=== PATIENT | male | born 1940 | race Caucasian/White ===

== ENCOUNTER 2020-08-31 17:01 | Emergency (ER) | payer MEDICARE, OTHER, SELFPAY ==
[2020-08-31] VITALS (29 sets, daily range): BP systolic 113–174; BP diastolic 57–79; PULSE 32–49; RESP 17–29; TEMP 36.4; O2SAT 93–98; BMI 24.3
--- NOTE | 2020-08-31 17:11 | DI.RAD.S_ITS ---
PROCEDURE: XR CHEST 1V INDICATIONS: chest pain TECHNIQUE: One view of the chest was acquired. COMPARISON: None. FINDINGS: Surgical changes and devices: None. Lungs and pleura: Lungs are clear. No pleural effusions or pneumothorax. Mediastinum: Mediastinal contours appear normal. Heart size is normal. Bones and chest wall: No suspicious bony lesions. Overlying soft tissues appear unremarkable. IMPRESSION: No evidence acute pulmonary process. Dictated by: Bruce Parnell M.D. on 08/31/2020 at 16:57 Approved by: Bruce Parnell M.D. on 08/31/2020 at 16:57
--- NOTE | 2020-08-31 17:24 | ED.ARRPALP ---
HPI - Arrhythmia/Palpitations <Alis Houston MD - Last Filed: 09/03/20 17:46> General Chief Complaint: Arrhythmia/Palpitations Stated Complaint: LIGHTHEADEDNESS/HBP/LOW PULSE RATE Time Seen by Provider: 08/31/20 17:14 Source: patient Mode of arrival: Ambulatory Limitations: no limitations History of Present Illness HPI narrative: Otherwise healthy 79-year-old gentleman with the S3 of hypertension on 5 mg of lisinopril presents with 4 days of lightheadedness with exertion. He states that it takes walking up at least a slope or stairs over last couple days but today he noticed that he was more lightheaded with simply walking across the room. He does not report any chest pain, orthopnea, dyspnea, lower extremity edema, palpitations, headaches or acute neurologic symptoms. He has had no recent fevers, cough, chills, abdominal pain, vomiting or diarrhea. His primary care physician is at [facility] in [place]. Related Data Allergies Allergy/AdvReac Type Severity Reaction Status Date / Time No Known Drug Allergies Allergy Verified 08/31/20 17:20 Review of Systems <Alis Houston MD - Last Filed: 09/03/20 17:46> Review of Systems Narrative: Remainder of complete review of systems is otherwise unremarkable except for that included in the HPI. Patient History <Alis Houston MD - Last Filed: 09/03/20 17:46> Social History Smoking Status: Never smoker Smoking Status: Never smoker alcohol intake frequency: 0-2 drinks per day Substance Use Type: does not use Exam <Alis Houstno MD - Last Filed: 09/03/20 17:46> Narrative Exam Narrative: General: Healthy appearing, in no acute distress. Able to give a complete and coherent history. Well-nourished well-developed HEENT: Moist mucous membranes, normal sclera with reactive pupils, Neck: No JVD, supple Respiratory: Lungs are clear to auscultation, no wheezing no rales no rhonchi. Full and symmetrical air movement Cardiac: Slow but Regular rate and rhythm no murmurs no bruits Abdomen: Soft, nontender, good bowel tones, no flank pain Skin: Warm and dry, no rashes Neurologic: Grossly neurologically intact with no obvious asymmetries or abnormalities Extremities: No trauma, well perfused Psych: Cooperative, appropriate insight and affect Initial Vital Signs Initial Vital Signs: Vital Signs Pulse Rate 43 L 08/31/20 17:09 Respiratory Rate 23 08/31/20 17:09 <Denny Kovacs DO - Last Filed: 08/31/20 22:47> Initial Vital Signs Initial Vital Signs: Vital Signs Pulse Rate 43 L 08/31/20 17:09 Respiratory Rate 23 08/31/20 17:09 Course <Alis Houston MD - Last Filed: 09/03/20 17:46> Orders Ordered: ED Orders 08/31/20 17:11 XR chest 1V Stat EKG-12 Lead Stat 08/31/20 17:21 Complete Blood Count AUTO DIFF Stat Comprehensive Metabolic Panel Stat Lipase Stat Magnesium Stat NT-proBNP (BNP-Adult 18+) Stat Troponin & CK Cardiac Panel Stat 08/31/20 17:25 COVID19 -Nasal swab/Pre-Proc Stat Vital Signs Vital signs: Vital Signs - 8 hr 08/31/20 17:09 08/31/20 17:11 08/31/20 17:15 Temperature Pulse Rate 43 L 40 L 40 L Respiratory Rate 23 20 20 Blood Pressure 174/79 H Pulse Oximetry 97 97 08/31/20 17:16 08/31/20 17:30 08/31/20 17:45 Temperature 97.6 F Pulse Rate 41 L 39 L 38 L Respiratory Rate 22 20 21 Blood Pressure 174/79 H Pulse Oximetry 98 96 96 08/31/20 18:00 08/31/20 18:15 08/31/20 18:30 Temperature Pulse Rate 37 L 37 L 37 L Respiratory Rate 21 26 H 21 Blood Pressure Pulse Oximetry 95 95 95 08/31/20 18:45 08/31/20 19:00 08/31/20 19:15 Temperature Pulse Rate 36 L 37 L 40 L Respiratory Rate 23 22 28 H Blood Pressure Pulse Oximetry 95 97 97 08/31/20 19:30 08/31/20 19:45 08/31/20 20:00 Temperature Pulse Rate 40 L 36 L 38 L Respiratory Rate 27 H 24 19 Blood Pressure Pulse Oximetry 95 96 96 08/31/20 20:10 08/31/20 20:15 08/31/20 20:30 Temperature Pulse Rate 36 L 36 L 38 L Respiratory Rate 23 20 17 Blood Pressure 150/66 H 145/67 H Pulse Oximetry 96 96 96 08/31/20 20:31 08/31/20 20:45 08/31/20 21:00 Temperature Pulse Rate 49 L 42 L 36 L Respiratory Rate 24 29 H 29 H Blood Pressure 154/70 H 152/58 H Pulse Oximetry 96 96 96 08/31/20 21:01 08/31/20 21:15 08/31/20 21:16 Temperature Pulse Rate 36 L 34 L 35 L Respiratory Rate 28 H 23 21 Blood Pressure 144/67 H 145/66 H Pulse Oximetry 95 95 95 08/31/20 21:30 08/31/20 21:45 08/31/20 22:00 Temperature Pulse Rate 34 L 35 L 34 L Respiratory Rate 23 23 22 Blood Pressure 128/62 120/58 L 131/60 Pulse Oximetry 95 95 95 08/31/20 22:15 08/31/20 22:30 Temperature Pulse Rate 32 L 37 L Respiratory Rate 19 26 H Blood Pressure 113/57 L 127/61 Pulse Oximetry 93 <Denny Kovacs, - Last Filed: 08/31/20 22:47> Course Course Narrative: Patient received in sign-out from Dr. Houston. I performed independent history and physical exam. I have no significant additions. Patient is resting comfortably. Currently no but he at [facility] able to perform pacemaker. Orders Ordered: ED Orders 08/31/20 17:11 XR chest 1V Stat EKG-12 Lead Stat 08/31/20 17:21 Complete Blood Count AUTO DIFF Stat Comprehensive Metabolic Panel Stat Lipase Stat Magnesium Stat NT-proBNP (BNP-Adult 18+) Stat Troponin & CK Cardiac Panel Stat 08/31/20 17:25 COVID19 -Nasal swab/Pre-Proc Stat Consultations Consultation #1: Dr. Douglas (Cardio at ) happy to accept patient in transfer Vital Signs Vital signs: Vital Signs - 8 hr 08/31/20 17:09 08/31/20 17:11 08/31/20 17:15 Temperature Pulse Rate 43 L 40 L 40 L Respiratory Rate 23 20 20 Blood Pressure 174/79 H Pulse Oximetry 97 97 08/31/20 17:16 08/31/20 17:30 08/31/20 17:45 Temperature 97.6 F Pulse Rate 41 L 39 L 38 L Respiratory Rate 22 20 21 Blood Pressure 174/79 H Pulse Oximetry 98 96 96 08/31/20 18:00 08/31/20 18:15 08/31/20 18:30 Temperature Pulse Rate 37 L 37 L 37 L Respiratory Rate 21 26 H 21 Blood Pressure Pulse Oximetry 95 95 95 08/31/20 18:45 08/31/20 19:00 08/31/20 19:15 Temperature Pulse Rate 36 L 37 L 40 L Respiratory Rate 23 22 28 H Blood Pressure Pulse Oximetry 95 97 97 08/31/20 19:30 08/31/20 19:45 08/31/20 20:00 Temperature Pulse Rate 40 L 36 L 38 L Respiratory Rate 27 H 24 19 Blood Pressure Pulse Oximetry 95 96 96 08/31/20 20:10 08/31/20 20:15 08/31/20 20:30 Temperature Pulse Rate 36 L 36 L 38 L Respiratory Rate 23 20 17 Blood Pressure 150/66 H 145/67 H Pulse Oximetry 96 96 96 08/31/20 20:31 08/31/20 20:45 08/31/20 21:00 Temperature Pulse Rate 49 L 42 L 36 L Respiratory Rate 24 29 H 29 H Blood Pressure 154/70 H 152/58 H Pulse Oximetry 96 96 96 08/31/20 21:01 08/31/20 21:15 08/31/20 21:16 Temperature Pulse Rate 36 L 34 L 35 L Respiratory Rate 28 H 23 21 Blood Pressure 144/67 H 145/66 H Pulse Oximetry 95 95 95 08/31/20 21:30 08/31/20 21:45 08/31/20 22:00 Temperature Pulse Rate 34 L 35 L 34 L Respiratory Rate 23 23 22 Blood Pressure 128/62 120/58 L 131/60 Pulse Oximetry 95 95 95 08/31/20 22:15 08/31/20 22:30 Temperature Pulse Rate 32 L 37 L Respiratory Rate 19 26 H Blood Pressure 113/57 L 127/61 Pulse Oximetry 93 MDM - Arrhythmia/Palpitations <Alis Houston MD - Last Filed: 09/03/20 17:46> Lab Data Result diagrams: 08/31/20 17:21 08/31/20 17:21 Labs: Lab Results 08/31/20 08/31/20 08/31/20 Range/Units 17:21 17:21 17:25 WBC 9.7 (4.5-11.0) X10^3/uL RBC 4.94 (4.5-5.9) X10^6/uL Hgb 15.3 (13.5-17.5) g/dL Hct 45.4 (41-53) % MCV 91.9 (80-100) fL MCH 31.0 (26-34) PG MCHC 33.7 (30-36) % RDW 13.5 (11.6-14.8) % Plt Count 221 (150-400) X10^3/uL Neut % (Auto) 67.0 (50-75) % Lymph % (Auto) 22.8 L (25-40) % Frontier % (Auto) 8.4 (3-14) % Eos % (Auto) 1.3 L (2-4) % Baso % (Auto) 0.5 (0-2) % Neut # (Auto) 6500 (4918-9107) /uL Lymph # (Auto) 2200 (1074-8543) /uL Frontier # (Auto) 800 (0-900) /uL Eos # (Auto) 100 (0-450) /uL Baso # (Auto) 0 (0-100) /uL Sodium 139 (137-145) mmol/L Potassium 4.4 (3.4-5.1) mmol/L Chloride 106 (98-107) mmol/L Carbon Dioxide 26 (22-32) mmol/L BUN 24 H (9-20) mg/dL Creatinine 1.04 (0.66-1.25) mg/dL Estimated GFR > 60.0 (>60) mL/min BUN/Creatinine Ratio 23.1 H (6-22) Glucose 102 (80-110) mg/dL Calcium 10.2 (8.4-10.2) mg/dL Magnesium 2.2 (1.6-2.3) mg/dL Total Bilirubin 0.4 (0.2-1.3) mg/dL AST 42 (17-59) IU/L ALT 42 (<50) IU/L Alkaline Phosphatase 80 (38-126) U/L Total Creatine Kinase 137 (55-170) U/L CK-MB (CK-2) 3.24 H (<2.37) ng/mL CK-MB (CK-2) Rel Index 2.4 (1.5-5.0) % Troponin I < 0.012 (0.01-0.034) ng/mL NT-Pro-B Natriuret Pep 903 H (<450) pg/mL Total Protein 7.0 (6.3-8.2) g/dL Albumin 4.5 (3.5-5.0) g/dL Globulin 2.5 (1.7-4.1) g/dL Albumin/Globulin Ratio 1.8 (1.0-2.8) Lipase 81 (23-300) U/L SARS-CoV-2 (PCR) Negative (Negative) Imaging Data Chest x-ray: Radiologist's Impresson: FINDINGS: Surgical changes and devices: None. Lungs and pleura: Lungs are clear. No pleural effusions or pneumothorax. Mediastinum: Mediastinal contours appear normal. Heart size is normal. Bones and chest wall: No suspicious bony lesions. Overlying soft tissues appear unremarkable. IMPRESSION: No evidence acute pulmonary process. Dictated by: Bruce Parnell M.D. on 08/31/2020 at 16:57 ECG Data Interpretation: Second-degree type 2 block with a perfusing rate at 40 no acute ischemic changes MDM Narrative Medical decision making narrative: 79-year-old gentleman with 3-4 days of increasing a exertional dyspnea presents with second-degree type 2 block no evidence of significant heart failure, cardiomegaly, acute coronary syndrome or any infectious etiology. Beds are available at [facility]. Care is reviewed with Dr. Sara Gonzalez who accepts care. Care will be reviewed with Dr. Fierro, cardiology. 640 line service supervisor from [facility] returns the call and indicates that Dr. More, ball rolling machine operator and only crepe sole wire brusher who can place pace makers this weekend is on vacation. Will need to look for alternative hospital for admission. 652pm no bed available at [facility]. He is put on a waiting list and will contact [facility] next to see if there is bed availability. Care is turned over to Dr. Kovacs at shift change <Denny Kovacs, - Last Filed: 08/31/20 22:47> Lab Data Labs: Lab Results 08/31/20 08/31/20 08/31/20 Range/Units 17:21 17:21 17:25 WBC 9.7 (4.5-11.0) X10^3/uL RBC 4.94 (4.5-5.9) X10^6/uL Hgb 15.3 (13.5-17.5) g/dL Hct 45.4 (41-53) % MCV 91.9 (80-100) fL MCH 31.0 (26-34) PG MCHC 33.7 (30-36) % RDW 13.5 (11.6-14.8) % Plt Count 221 (150-400) X10^3/uL Neut % (Auto) 67.0 (50-75) % Lymph % (Auto) 22.8 L (25-40) % Frontier % (Auto) 8.4 (3-14) % Eos % (Auto) 1.3 L (2-4) % Baso % (Auto) 0.5 (0-2) % Neut # (Auto) 6500 (4960-6803) /uL Lymph # (Auto) 2200 (5478-2205) /uL Frontier # (Auto) 800 (0-900) /uL Eos # (Auto) 100 (0-450) /uL Baso # (Auto) 0 (0-100) /uL Sodium 139 (137-145) mmol/L Potassium 4.4 (3.4-5.1) mmol/L Chloride 106 (98-107) mmol/L Carbon Dioxide 26 (22-32) mmol/L BUN 24 H (9-20) mg/dL Creatinine 1.04 (0.66-1.25) mg/dL Estimated GFR > 60.0 (>60) mL/min BUN/Creatinine Ratio 23.1 H (6-22) Glucose 102 (80-110) mg/dL Calcium 10.2 (8.4-10.2) mg/dL Magnesium 2.2 (1.6-2.3) mg/dL Total Bilirubin 0.4 (0.2-1.3) mg/dL AST 42 (17-59) IU/L ALT 42 (<50) IU/L Alkaline Phosphatase 80 (38-126) U/L Total Creatine Kinase 137 (55-170) U/L CK-MB (CK-2) 3.24 H (<2.37) ng/mL CK-MB (CK-2) Rel Index 2.4 (1.5-5.0) % Troponin I < 0.012 (0.01-0.034) ng/mL NT-Pro-B Natriuret Pep 903 H (<450) pg/mL Total Protein 7.0 (6.3-8.2) g/dL Albumin 4.5 (3.5-5.0) g/dL Globulin 2.5 (1.7-4.1) g/dL Albumin/Globulin Ratio 1.8 (1.0-2.8) Lipase 81 (23-300) U/L SARS-CoV-2 (PCR) Negative (Negative) <Denny Kovacs DO - Last Filed: 08/31/20 22:47> Critical Care Time Critical Care Time: Yes Total Critical Care Time: 35 Attestation: The high probability of a clinically significant, sudden or life threatening deterioration of the [CV] system(s) required my full and direct attention, intervention and personal management. The aggregate critical care time was [35] minutes. This time is in addition to time spent performing reported procedures but includes the following: [x] Data Review and interpretation [x] Patient assessment and monitoring of vital signs [x] Documentation [x] Medication orders and management Discharge Plan Departure Patient Disposition: [facility] Clinical Impression: Heart block AV second degree, Exertional dyspnea Referrals: Miscellaneous,Doctor, MD [Primary Care Provider] -
[2020-08-31 17:38] LABS: Add Manual Diff / Slide Review NO; Basophils Absolute Auto 0 /uL (0-100); Basophils Percent Auto 0.5 % (0-2); Eosinophils Absolute Auto 100 /uL (0-450); Eosinophils Percent Auto 1.3 % (2-4); Hematocrit 45.4 % (41-53); Hemoglobin 15.3 g/dL (13.5-17.5); Lymphocytes Absolute Auto 2200 /uL (1100-4500); Lymphocytes Percent Auto 22.8 % (25-40); Mean Corpuscular HGB Conc 33.7 % (30-36); Mean Corpuscular Volume 91.9 fL (80-100); Monocytes Absolute Auto 800 /uL (0-900); Monocytes Percent Auto 8.4 % (3-14); Neutrophils Absolute Auto 6500 /uL (1500-7000); Platelet Count 221 X10^3/uL (150-400); Red Blood Cell Count 4.94 X10^6/uL (4.5-5.9); Red Cell Distribution Width 13.5 % (11.6-14.8); White Blood Cell Count 9.7 X10^3/uL (4.5-11.0)
--- NOTE | 2020-08-31 17:53 | PC.NURSE ---
3 days history of intermittent dizziness and shortness of breath.
[2020-08-31 17:56] LABS: Alanine Aminotransferase 42 IU/L (<50); Albumin 4.5 g/dL (3.5-5.0); Albumin Globulin Ratio 1.8 (1.0-2.8); Alkaline Phosphatase 80 U/L (38-126); Aspartate Aminotransferase 42 IU/L (17-59); BUN Creatinine Ratio 23.1 (6-22); Bilirubin Total 0.4 mg/dL (0.2-1.3); Blood Urea Nitrogen 24 mg/dL (9-20); Calcium 10.2 mg/dL (8.4-10.2); Carbon Dioxide 26 mmol/L (22-32); Chloride 106 mmol/L (98-107); Creatine Kinase 137 U/L (55-170); Estimated Glomerular Filt Rate > 60.0 mL/min (>60); Globulin 2.5 g/dL (1.7-4.1); Glucose 102 mg/dL (80-110); HEMOLYSIS < 15 (0-50); Lipase 81 U/L (23-300); Magnesium 2.2 mg/dL (1.6-2.3); Potassium 4.4 mmol/L (3.4-5.1); Sodium 139 mmol/L (137-145)
[2020-08-31 18:07] LABS: NT-proBNP (BNP-Adult 18+) 903 pg/mL (<450); Troponin I < 0.012 ng/mL (0.01-0.034)
[2020-08-31 18:11] LABS: CKMB % Relative Index 2.4 % (1.5-5.0); Creatine Kinase MB 3.24 ng/mL (<2.37)
[2020-08-31 18:12] LABS: COVID19 -Nasal RAPID Negative (Negative)
--- NOTE | 2020-08-31 18:14 | PC.NURSE ---
Patient complains of belching and gas which he has been having more frequently the last few weeks. He is requesting to take his own tums. Dr. Houston informed and okayed.
== END 2020-08-31 22:58 | disposition short-term general hospital (02) ==
PROVIDERS: Emergency Medicine; Emergency Provider Emergency Medicine
DX: I44.1 Atrioventricular block, second degree (principal); R06.00 Dyspnea, unspecified; Z20.822 Contact with and (suspected) exposure to COVID-19
CPT/HCPCS: 36415; 71045; 80053; 82550; 82553; 83690; 83735; 83880; 84484; 85025; 87635; 93005; 99284; 99291; C9803